=== PATIENT | male | born 1990 | race Caucasian/White ===

== ENCOUNTER 2024-05-07 18:49 | Emergency (ER) | payer OTHER ==
[~2024-05-07] VITALS: Ht 177.8 cm; Wt 78.0 kg
[2024-05-07 18:56] VITALS: BP 144/82; PULSE 96; RESP 18; TEMP 98.3; O2SAT 97
== END 2024-05-07 20:01 | disposition left against medical advice (07) ==
LOC: ER 18:49
DX: T40.2X1A Poisoning by other opioids, accidental (unintentional), initial encounter (principal); Y92.89 Other specified places as the place of occurrence of the external cause
CPT/HCPCS: 99283